=== PATIENT | male | born 1975 | race Caucasian/White ===

== ENCOUNTER 2018-05-15 20:40 | Emergency (ER) | payer OTHER ==
[~2018-05-15] VITALS: Ht 188 cm; Wt 77.1 kg
== END 2018-05-15 21:51 | disposition home or self-care (01) ==
LOC: ER 20:40
DX: S09.90XA Unspecified injury of head, initial encounter (principal); Z23 Encounter for immunization; F17.210 Nicotine dependence, cigarettes, uncomplicated; W22.8XXA Striking against or struck by other objects, initial encounter; Y99.0 Civilian activity done for income or pay
CPT/HCPCS: 90471; 90714; 99282